=== PATIENT | male | born 1950 | race Caucasian/White ===

== ENCOUNTER 2016-12-29 09:15 | Inpatient (IN) | payer OTHER ==
[2016-12-29 09:28] VITALS: BMI 36.3
[2017-01-03] MEDS ORDERED: CEFAZOLIN/Water 2 GM/20 ML SYRINGE ONE (09:03)
[2017-01-03] MEDS ORDERED: Fentanyl 250 MCG/5 ML VIAL ONE (09:29)
[2017-01-03] MEDS ORDERED: Sodium Chloride 0.9% 10 ML ONE (09:34)
[2017-01-03] MEDS ORDERED: Dexamethasone 20 MG/5 ML VIAL ONE (10:02)
[2017-01-03] MEDS ORDERED: Propofol 200 MG/20 ML VIAL ONE (10:02)
[2017-01-03] MEDS ORDERED: Ondansetron HCl/PF 4 MG/2 ML Vial ONE (10:02)
[2017-01-03] MEDS ORDERED: Promethazine HCl 25 MG/ML VIAL SLOW IVP PRN (10:54)
[2017-01-03] MEDS ORDERED: Ondansetron HCl/PF 4 MG/2 ML Vial IVP PRN ×2 (10:54→14:17)
[2017-01-03] MEDS ORDERED: Promethazine HCl 25 MG/ML VIAL IM PRN ×2 (10:54→14:17)
[2017-01-03] MEDS ORDERED: Fentanyl 100 MCG/2 ML VIAL ONE (12:01)
[2017-01-03] MEDS ORDERED: Ketorolac Tromethamine 30 MG/ML VIAL ONE (12:57)
--- NOTE | 2017-01-03 13:39 | OP ---
DATE OF OPERATION: 01/03/2017 SURGEON: Dionte Chan M.D. SAFETY ASSOCIATE: Tish Ojeda PROCEDURE: Removal of hardware C5-C6, interbody arthrodesis C4-C5 and C6-C7, exploration of spinal fusion C5-C6, placed in intravertebral biomechanical device, local morselized autograft, demineraliz ed bone matrix, anterior titanium instrumentation C5-6. PROCEDURE IN DETAIL: The patient was brought into the operating room and intubated. He was positio sharla supine with the head in modest extension on a gel-filled donut. The previous incision was reope sharla and the C4 through C7 levels were identified. The previous plate was very incorporated by bone and overgrown by bone. We used the drill and Leksell rongeur to remove this bone. We were able to remove the screws in C5, but the screws in C6 were completely invested by bone into the screw head a nd it was impossible to get adequate screw purchase. Ultimately, we tried to drill out and curet ou t the bone in the screw head has been unsuccessfully. I elected therefore not to take any further e fforts to remove the plate as it seemed that it would require significant destruction of the C6 vert ebral body to do so. I therefore replaced the C5 screws. Next, we placed distraction between C4 an d C7 and a completely debrided the intravertebral disks at C4-5 and C6-7. The bony endplates were d ecorticated for the purpose of arthrodesis and appropriately sized intravertebral biomechanical. PE EK devices were brought into the field, filled with demineralized bone matrix and local morselized a utograft, and tapped into place securely at C4-5 and at C6-7. The wound was then extensively irriga clare, immaculate hemostasis was secured, and the wound was closed in anatomic layers over a drain.
[2017-01-03] MEDS ORDERED: HYDROcodone/Acetaminophen 5/325 mg Tablet PO PRN (14:14)
[2017-01-03] MEDS ORDERED: PROVENTIL INHALER 6.7 G (200 INHALATIONS) INH PRN (14:15)
[2017-01-03] MEDS ORDERED: Promethazine HCl 12.5 MG SUPP PR PRN (14:17)
[2017-01-03] MEDS ORDERED: tiZANidine HCl 4 MG TAB PO PRN (14:17)
[2017-01-03] MEDS ORDERED: diphenhydrAMINE 25 MG CAP PO PRN (14:17)
[2017-01-03] MEDS ORDERED: HYDROcodone/Acetaminophen 10/325 mg Tablet PO PRN ×2 (14:17)
[2017-01-03] MEDS ORDERED: Milk Of Magnesia 30 ML UDCUP PO PRN (14:17)
[2017-01-03] MEDS ORDERED: diphenhydrAMINE 50 MG/ML VIAL IVP PRN (14:17)
[2017-01-03] MEDS ORDERED: Promethazine 25 MG TAB PO PRN (14:17)
[2017-01-03] MEDS ORDERED: Morphine 4 MG/ML VIAL SLOW IVP PRN ×2 (14:24→14:25)
[2017-01-03] MEDS: Sodium Chloride 0.9% 1,000 ML IV SCH (14:30)
[2017-01-03] MEDS: Cyclobenzaprine 10 MG TAB PO SCH ×2 (15:54→21:51)
[2017-01-03] MEDS: Gabapentin 300 MG CAP PO SCH ×2 (17:56→21:51)
[2017-01-03] MEDS: Ketorolac Tromethamine 30 MG/ML VIAL IVP SCH (18:16)
[2017-01-03] MEDS: CEFAZOLIN/Water 2 GM/20 ML SYRINGE SLOW IVP SCH (18:17)
[2017-01-03] MEDS: Atorvastatin Calcium 20 MG TAB PO SCH (21:45)
[2017-01-03] MEDS: Finasteride 5 MG TAB PO SCH (21:45)
[2017-01-03] MEDS: Tamsulosin HCl 0.4 MG CAP PO SCH (21:45)
[2017-01-04] MEDS: Ketorolac Tromethamine 30 MG/ML VIAL IVP SCH ×4 (02:04→18:03)
[2017-01-04] MEDS: CEFAZOLIN/Water 2 GM/20 ML SYRINGE SLOW IVP SCH ×3 (02:06→17:53)
[2017-01-04] MEDS: Sodium Chloride 0.9% 1,000 ML IV SCH ×2 (05:19→15:57)
[2017-01-04] MEDS: Cyclobenzaprine 10 MG TAB PO SCH ×3 (08:46→21:26)
[2017-01-04] MEDS: Gabapentin 300 MG CAP PO SCH ×3 (08:48→21:26)
[2017-01-04] MEDS: Loratadine 10 MG TAB PO SCH (08:49)
[2017-01-04] MEDS: Finasteride 5 MG TAB PO SCH (21:26)
[2017-01-04] MEDS: Atorvastatin Calcium 20 MG TAB PO SCH (21:26)
[2017-01-04] MEDS: Tamsulosin HCl 0.4 MG CAP PO SCH (21:26)
[2017-01-05] MEDS: Ketorolac Tromethamine 30 MG/ML VIAL IVP SCH ×2 (01:40→06:23)
[2017-01-05] MEDS: CEFAZOLIN/Water 2 GM/20 ML SYRINGE SLOW IVP SCH ×2 (01:41→09:02)
[2017-01-05] MEDS: Sodium Chloride 0.9% 1,000 ML IV SCH (05:20)
[2017-01-05 08:05] VITALS: TEMP 97.9
[2017-01-05 08:54] VITALS: BP 165/97
[2017-01-05] MEDS: Cyclobenzaprine 10 MG TAB PO SCH (09:02)
[2017-01-05] MEDS: Gabapentin 300 MG CAP PO SCH (09:03)
[2017-01-05] MEDS: Loratadine 10 MG TAB PO SCH (09:03)
== END 2017-01-05 11:40 | disposition home or self-care (01) | DRG 473 ==
LOC: SURG A 01-03 07:26 → SURG B 01-03 12:40
PROVIDERS: ADMIT Neurological Surgery; ATTEND Neurological Surgery
PROC: 0RG20AJ Fusion of 2 or more Cervical Vertebral Joints with Interbody Fusion Device, Posterior Approach, Anterior Column, Open Approach (ICD-10-PCS; principal; 2017-01-03)
PROC: 0PP304Z Removal of Internal Fixation Device from Cervical Vertebra, Open Approach (ICD-10-PCS; 2017-01-03)
DX: M47.22 Other spondylosis with radiculopathy, cervical region (principal); J44.9 Chronic obstructive pulmonary disease, unspecified; I10 Essential (primary) hypertension; J43.9 Emphysema, unspecified; M48.02 Spinal stenosis, cervical region; Z98.1 Arthrodesis status; E78.5 Hyperlipidemia, unspecified; G47.33 Obstructive sleep apnea (adult) (pediatric); H26.9 Unspecified cataract; M19.90 Unspecified osteoarthritis, unspecified site; F17.210 Nicotine dependence, cigarettes, uncomplicated; N40.0 Benign prostatic hyperplasia without lower urinary tract symptoms
CPT/HCPCS: 76001; A4216; G8978-GP-CI; G8979-GP-CI; G8980-GP-CI; J1100; J1885; J2405; J2704; J3010; J3490; J7620

== ENCOUNTER 2017-01-19 15:13 | Outpatient (CLI) | payer OTHER ==
--- NOTE | 2017-01-19 16:02 | RAD ---
CERVICAL SPINE: 01/19/17 Four views. HISTORY: Neck pain. Followup surgery. COMPARISON: 02/04/05. Prior exam revealed anterior plate and screws at C5-6. The anterior plate and screws at C5-6 are agai n noted with fusion at this level. There is now an interbody implant at C4-5 which has been placed si nce the prior exam. Vertebral bodies maintain height and alignment. Mild degenerative changes. IMPRESSION: Postop and degenerative changes of the cervical spine noted. POS: [facility]
== END 2017-01-19 15:14 | disposition home or self-care (01) ==
LOC: TBSIIMAG 15:13
PROVIDERS: ATTEND Physician Assistant
DX: M54.2 Cervicalgia (principal); Z98.890 Other specified postprocedural states
CPT/HCPCS: 72040

== ENCOUNTER 2017-03-03 12:39 | Outpatient (CLI) | payer OTHER ==
--- NOTE | 2017-03-03 14:05 | RAD ---
FIVE VIEWS CERVICAL SPINE: History: Neck pain. M54.2 Technique: AP, lateral, swimmer's and open mouth odontoid views of the cervical spine is obtained. Comparison: 01-19-17 FINDINGS: Four views of the cervical spine demonstrates ACDF with anterior plates and screws fusing the C5-6 le fernando. Anterior fusion hardware is also seen at the C4-5 and C6-7 levels. Findings are unchanged since the previous comparison radiograph from December 2016. IMPRESSION: Anterior fusion with fusion of the C4, C5, C5 and C6 vertebra. POS: [facility]
== END 2017-03-03 12:40 | disposition home or self-care (01) ==
LOC: TBSIIMAG 12:39
PROVIDERS: ATTEND Neurological Surgery
DX: M54.2 Cervicalgia (principal); Z98.1 Arthrodesis status
CPT/HCPCS: 72040

== ENCOUNTER → 2017-04-22 | Day surgery (SDC) | payer OTHER ==
[2017-04-21 10:19] VITALS: BMI 38.0
[~2017-04-22] MED LIST: Iopamidol-M 300 61% 15 ML VIAL ONE
[2017-04-22 07:41] VITALS: TEMP 97.9
--- NOTE | 2017-04-22 10:21 | RAD ---
CERVICAL AND LUMBAR SPINE MYELOGRAM: INDICATION: Low back pain and lumbar radiculopathy. PROCEDURE: Informed consent was obtained, and the patient was transferred to the interventional suite. Bonding Equipment Operator im aging was performed prior to the procedure. The patient was then placed into a prone position, and the low back was prepped and draped in the sta ndard sterile fashion. Topical anesthesia was achieved with 1% lidocaine buffered with sodium bicarb eleazar. Using a 22 gauge needle, uneventful access was obtained into the thecal sac from a left inter laminar approach at the L2-3 level. Clear color CSF was noted at the needle hub. Subsequently, 10 m L of Isovue M 300 was instilled into the thecal sac. This was performed under real-time fluoroscopy with appropriate contrast opacification of the thecal sac demonstrated during the exam with adequate contrast opacification achieved. The needle was removed. The patient tolerated the procedure well w ithout evidence of complication. The patient was then transferred to CT Department [facility]. Please reference separate CT myelogram for additional details. RADIATION EXPOSURE DATA: 0.2 minutes intermittent fluoroscopy. 397 mGy*cm^2. IMPRESSION: Technically successful cervical and lumbar spine myelogram. POS: [facility]
--- NOTE | 2017-04-22 10:45 | CT ---
CT LUMBAR SPINE WITH CONTRAST CT LUMBAR SPINE MYELOGRAM: Date: 04/22/17 INDICATION: Low back pain, lumbar radiculopathy. Reference made to 06/20/13. FINDINGS: There is redemonstration of posterior metallic fusion at L5-S1 levels with associated sclerosis of th e L5 and S1 vertebral segment. There is a mild degree of spondylolisthesis (Grade I), stable at the L 5-S1 level. The conus medullaris terminates at the L1 level, normal in morphology. Incidental note of ectasia and calcification of the abdominal aorta. There are numerous cysts of each kidney, incompletely assessed. Moderate distention of the partially visualized bladder is noted. Bilateral sclerosis is seen about the sacroiliac joints, more notable on the left. No obvious perihar dware lucency is seen. There is multilevel bilateral degenerative facet hypertrophy, more pronounced at the sites of operative fusion. There is osseous irregularity with heterotopic density about the ri ght ilium, laterally. L5-S1: Trace spondylolisthesis is demonstrated as discussed above. No significant mass effect upon the theca l sac. There is moderate biforaminal stenosis, stable. L4-5: There is mild narrowing of the central canal as a result of bilateral facet hypertrophy and disc oste ophyte formation. There is left neural foraminal narrowing. No high grade right foraminal stenosis. L3-4: There is moderate central canal stenosis as a result of broad based disc osteophyte complex. There is mild bilateral neural foraminal narrowing. L2-3: Trace retrolisthesis. Mild narrowing of the central canal. There is mild bilateral neural foraminal n arrowing. L1-2: No high grade mass effect upon the central canal or neural foramina. IMPRESSION: Multilevel degenerative changes of the postoperative lumbar spine as outlined above. No significant i nterval detrimental change from prior lumbar myelogram of 06/20/13. POS: [facility]
--- NOTE | 2017-04-22 11:06 | CT ---
CERVICAL SPINE CT WITH CONTRAST CT CERVICAL MYELOGRAM: Date: 04/22/17 COMPARISON: 06/20/13. CLINICAL HISTORY: Cervical radiculopathy, pain. FINDINGS: Redemonstration of anterior metallic fusion of C5-6. Intradiscal space devices are present at C4-5 an d C6-7. There is straightening of the normal cervical curvature. Degenerative hypertrophy is seen at the atlantodental articulation. No obvious perihardware lucency is seen. There is superior end plate irregularity with associated mild height loss, greatest anteriorly involving the C7 segment, progress mikhail from prior exam, indicating degenerative end plate irregularity adjacent to the intradiscal space device. The above described spacing devices at C4-5 and C6-7 have been placed since the prior exam. No high grade central canal at C1-2. C2-3: Trace spondylolisthesis is present, stable. There is minimal effacement of ventral thecal sac by oste ophyte formation. No high grade foraminal stenosis. C3-4: Bilateral uncinate process hypertrophy is present. There is mild osseous narrowing of each neural for amen, more notable on the right. No high grade central canal stenosis. C4-5: Broad based osteophyte ridge, greatest centrally, does result in mild central canal stenosis with ju tral cord effacement. There is bilateral uncinate process hypertrophy, more notable on the left, with moderate left and mild right neural foraminal stenosis. C5-6: There is a prominent left paracentral osteophyte with focal moderate central canal stenosis and abutm ent of the ventral aspect of the cervical spinal cord. There is moderate to severe right and moderate left neural foraminal stenosis. C6-7: Moderate central canal stenosis with associated cord compression due to prominent central/left parace ntral osteophyte ridge. There is mild to moderate left and minimal right neural foraminal narrowing. C7-T1: Disc osteophyte results in mild effacement of the ventral thecal sac contents. Minimal right neural f oraminal narrowing. No high grade left foraminal stenosis. Incidental note of granulomatous calcification. There is mild heterogeneity of the thyroid gland, incompletely assessed. This may be further assessed with dedicated thyroid ultrasound. IMPRESSION: Multilevel degenerative change throughout the postoperative cervical spine as outlined above. POS: [facility]
== END ==
LOC: RAD 06:59
PROVIDERS: ATTEND Neurological Surgery
PROC: B02B1ZZ Computerized Tomography (CT Scan) of Spinal Cord using Low Osmolar Contrast (ICD-10-PCS; principal; 2017-04-22)
DX: M54.16 Radiculopathy, lumbar region (principal); M54.12 Radiculopathy, cervical region; M48.02 Spinal stenosis, cervical region; M48.061 Spinal stenosis, lumbar region without neurogenic claudication; M43.17 Spondylolisthesis, lumbosacral region; Z98.1 Arthrodesis status
CPT/HCPCS: 62305; 72126; 72132

== ENCOUNTER 2018-08-08 22:28 | Observation (INO) | payer OTHER ==
[2018-08-08 23:07] LABS: #Eosinphils 0.4 thou/uL (0.0-0.7); #Lymphocytes 2.2 thou/uL (1.20-3.40); #Monocytes 0.5 thou/uL (0.11-0.59); #Neutrophils 6.5 thou/uL (1.40-6.50); %Basophils 0.4 % (0.0-1.0); %Eosinophils 4.6 % (0.0-10.0); %Monocytes 4.9 % (0.0-10.0); %Neutrophils 67.2 % (42.0-75.0); Hemoglobin 14.5 g/dL (14.0-18.0); Mean Corpuscular HGB CONC 34.1 g/dL (32.0-36.0); Mean Corpuscular Hemoglobin 31.6 pg (27.0-31.0); Mean Corpuscular Volume 92.7 fL (78.0-98.0); Mean Platelet Volume 8.8 fL (7.4-10.4); Platelet Count 135 thou/uL (130-400); RBC Distribution Width 13.2 % (11.5-14.5); Red Blood Cell (RBC) Count 4.58 mill/uL (4.70-6.10); White Blood Cell (WBC) Count 9.7 thou/uL (4.8-10.8)
--- NOTE | 2018-08-08 23:22 | RAD ---
XR Chest 1 View Portable HISTORY: Chest pain COMPARISON: None. FINDINGS: Heart size is within normal limits. Mediastinal structures appear unremarkable. The lungs a re clear of infiltrates. No significant bony findings. IMPRESSION: No active intrathoracic disease.
[2018-08-08 23:27] LABS: ALT (SGPT) 14 U/L (8-55); AST (SGOT) 13 U/L (5-34); Alkaline Phosphatase 70 U/L (40-150); Anion Gap 12 mmol/L (10-20); BUN (Urea Nitrogen) 13 mg/dL (8.4-25.7); Bilirubin, Total 0.5 mg/dL (0.2-1.2); Calc. Creatinine Clearance 0 mL/min (70-130); Calcium 9.4 mg/dL (7.8-10.44); Carbon Dioxide 25 mmol/L (23-31); Chloride 106 mmol/L (98-107); Estimated GFR-MDRD 78; Globulin 2.9 g/dL (2.4-3.5); Glucose 117 mg/dL (80-115); Potassium 3.8 mmol/L (3.5-5.1); Protein, Total 6.9 g/dL (5.8-8.1); Sodium 139 mmol/L (136-145)
--- NOTE | 2018-08-08 23:42 | CT ---
CT Brain WO Con HISTORY: Fall with head injury. COMPARISON: None. FINDINGS: The ventricular and cisternal system shows fairly age-appropriate change. There are no sign s of intracerebral hemorrhage or extra-axial fluid collections. The mastoid air cells are clear. There is mild ethmoid air cell mucosal change. IMPRESSION: No acute intracranial abnormalities.
--- NOTE | 2018-08-08 23:46 | CT ---
CT Cervical Spine WO Con HISTORY: Fall with neck pain. History of previous surgery. COMPARISON: 05/12/2017 study. FINDINGS: The vertebral bodies maintain normal height. Anterior cervical fusion is seen at the C5-6 l evel. Disc implants are seen at C4-5, C5-6 and C6-7, bony changes associated with these findings appear stable with some sclerotic bony change. Endplate irregularities are unchanged. The facets are in normal alignment. There is left-sided foraminal narrowing at C4-5 related to uncovertebral hypertrophic change this is moderate. Mild right-sided foraminal narrowing is seen at C5-6 with mild to moderate canal narrowing. Left-sided foraminal narrowing which is moderate is seen at C3 C6-7. There is no CT eviden ce for fracture. IMPRESSION: No CT evidence of fracture.
[2018-08-09] MEDS ORDERED: diphenhydrAMINE 50 MG/ML VIAL ONE (00:26)
[2018-08-09] MEDS ORDERED: Metoclopramide HCl 10 MG/2 ML VIAL ONE (00:26)
[2018-08-09] MEDS ORDERED: Ondansetron ODT 4 MG TAB SL PRN (02:35)
[2018-08-09] MEDS ORDERED: Acetaminophen 325 MG TAB PO PRN ×2 (02:35→09:00)
[2018-08-09] MEDS ORDERED: Ondansetron PF 4 MG/2 ML Vial IVP PRN ×2 (02:35→09:00)
[2018-08-09] MEDS ORDERED: HYDROcodone/Acetaminophen 5/325 mg Tablet PO PRN ×3 (02:35→09:00)
[2018-08-09 02:40] LABS: Troponin I Less than 0.010 ng/mL (< 0.028)
[2018-08-09 03:36] VITALS: BMI 36.9
[2018-08-09 06:17] LABS: Troponin I Less than 0.010 ng/mL (< 0.028)
[2018-08-09] MEDS ORDERED: Ondansetron ODT 4 MG TAB PO PRN (09:00)
[2018-08-09] MEDS ORDERED: Enoxaparin Sodium 40 MG/0.4 ML SYRINGE SC SCH (09:00)
[2018-08-09] MEDS ORDERED: hydrALAZINE 20 MG/ML VIAL SLOW IVP PRN (09:00)
[2018-08-09] MEDS ORDERED: Aspirin 325 MG TAB PO SCH (09:00)
[2018-08-09] MEDS ORDERED: Nitroglycerin 0.4 MG TAB (25 Tab Bottle) PO PRN (09:00)
[2018-08-09] MEDS ORDERED: Aspirin 325 mg Enteric Coated Tablet PO SCH (09:00)
[2018-08-09] MEDS ORDERED: HYDROcodone/Acetaminophen 10/325 mg Tablet PO PRN (09:10)
--- NOTE | 2018-08-09 10:50 | ULT ---
ULTRASOUND WITH DOPPLER DUPLEX VENOUS LOWER EXTREMITY RIGHT: HISTORY: A 67-year-old male with right lower extremity pain and edema. TECHNIQUE: Color flow Doppler, spectral waveform analysis of pulsed Doppler, and jordan-scale imaging with bakari tamy and augmentation, were used to evaluate the right common femoral, femoral, popliteal, posterior tibial, and superficial femoral, veins; and the proximal portions of the profunda femoral and greater saphenous, veins. FINDINGS: There is normal compressibility, demonstration of blood flow by color Doppler and pulsed Doppler, and response to augmentation, in all interrogated veins. IMPRESSION: Negative. No deep vein thrombosis in the right lower extremity. jn [] POS: [facility]
--- NOTE | 2018-08-09 12:14 | NM ---
EXAM: CARDIAC SPECT HISTORY: Chest pain TECHNIQUE: A myocardial perfusion scan was performed using the single isotope 1 day protocol with qian hnetium 99m sestamibi. [10 mCi] was injected intravenously for the rest exam followed by 30 mCifor the stress study. Pharmacologic stress with Lexiscan was monitored and interpreted by Ellen Hernandez, nurse practitioner FINDINGS: Homogeneous tracer distribution is seen in the myocardial segments on stress and rest image s without fixed or reversible defects. Gated SPECT LVEF: 60% Wall motion exam: Normal IMPRESSION: Normal myocardial perfusion scan
[2018-08-09 13:58] VITALS: BP 157/86; TEMP 97.6
[2018-08-09] MEDS ORDERED: Nitroglycerin 2% Ointment 1 INCH/1 GM Packet TOP SCH (14:00)
[2018-08-09] MEDS ORDERED: Cyclobenzaprine 10 MG TAB PO SCH (15:00)
[2018-08-09] MEDS ORDERED: Gabapentin 300 MG CAP PO SCH (15:00)
--- NOTE | 2018-08-09 15:23 | HP ---
PRIMARY CARE PHYSICIAN: Dr. Cano at the [facility] in [place]. CHIEF COMPLAINT: Chest pain and headache. HISTORY OF PRESENT ILLNESS: Mr. Messina is a pleasant 67-year-old gentleman, who has a history of hypertension and hypercholesterolemia. He was in his usual state of health until about 4 days ago. He says he was mowing the lawn. He stepped in a hole and then twisted his knee and then fell and hit the right side of his head. Since then, he has developed a pain in the right side of his neck that goes into the right side of his head. He says that the headache has been off and on and he feels like there is a knot in his neck on the right side. Also, around the same time, he started having chest pain off and on. It is primarily on the left side of his chest. It what happened he was up, moving around and he says that it was "very bad." It would radiate into his shoulder and then go into his back. During the time, he would have the chest pain, he would feel quite ill and sick. He would also get short of breath and nauseated. As a result of these symptoms, he came to the ER for evaluation. The patient also says that he noticed around this time, he started having some pain in his right leg off and on. It appeared to be swollen, but he says the swelling has actually gone down some, but he also noted some swelling and numbness in his right hand as well. REVIEW OF SYSTEMS: CONSTITUTIONAL: There has been no fevers or chills. No night sweats. No weight loss. HEENT: No headaches. No dizziness. No visual changes. No sore throat, rhinorrhea, neck pain. No adenopathy. PULMONARY: No hemoptysis. No cough. No wheezing. CARDIOVASCULAR: As per the history of present illness. GASTROINTESTINAL: He has had some nausea, but no vomiting. No change in bowels. No hematemesis. No melena. GENITOURINARY: No urinary frequency or hematuria. No hesitancy. MUSCULOSKELETAL: He complains of some pains in his right leg as well as some swelling off and on as he also says that he torn his meniscus in that right knee as well. SKIN AND INTEGUMENT: No skin changes. No rash. ENDOCRINE: No heat or cold intolerance. No polyuria. No polydipsia. PSYCHIATRIC: No symptoms of anxiety or depression. NEUROLOGIC: No focal weakness or seizures. PAST MEDICAL HISTORY: Significant for hypertension, hypercholesterolemia, BPH. He says he has had a kidney cyst on the right side, which has required draining in the past as well as COPD. PAST SURGICAL HISTORY: He has had 2 spinal surgeries, 2 neck surgeries, and cataract surgery. ALLERGIES: NO KNOWN DRUG ALLERGIES. SOCIAL HISTORY: He is . He has 4 children. He smokes about half a pack a day since 1975, so at least 40 years. Denies any alcohol use. FAMILY HISTORY: Significant for heart disease and he says in both his mother and father sides of the family. MEDICATIONS: Include, 1. Flomax 0.4 mg daily. 2. Sulindac 200 mg twice a day. 3. Protonix 40 mg p.o. daily. 4. Striverdi Respimat. 5. Claritin 10 mg daily. 6. [place] 10/325 q.4 as needed. 7. Hydrochlorothiazide 12.5 mg p.o. daily. 8. Gabapentin 600 mg three times a day. 9. Finasteride 5 mg p.o. daily. 10. Cyclobenzaprine 10 mg t.i.d. 11. Lipitor 40 mg at bedtime. 12. Albuterol sulfate one puff q.i.d. PHYSICAL EXAMINATION: GENERAL: He is alert and oriented. He appears to be in no acute distress. He is well developed and well nourished. VITAL SIGNS: His blood pressure is 157/79, heart rate is 74, respiratory rate of 18, temperature is 98.4. HEENT: His pupils are equal, round, and reactive to light and accommodation. Extraocular muscles are intact. His sclerae are anicteric. Throat, there is no erythema, no exudates. NECK: No adenopathy. No bruits. LUNGS: Clear to auscultation. There is no wheezing, no rales, no rhonchi. CARDIOVASCULAR: He has a normal S1 and S2. I do not appreciate an S3 or S4. No murmurs, clicks or rubs. ABDOMEN: Obese. It is soft. He did have some mild right upper quadrant tenderness. There is no rebound, no guarding, no organomegaly. EXTREMITIES: He has trace lower extremity edema primarily around the ankles on the right lower extremity, but there is no erythema, no warmth. No joint effusion. SKIN AND INTEGUMENT: There are no significant skin changes. No rash. NEUROLOGIC: Te exam is grossly nonfocal. IMAGING STUDIES: He had a CT scan of the brain, which was negative. Also, CT scan of the cervical spine in which there were no significant findings, although some age-appropriate degenerative changes, no fractures. His EKG was a sinus rhythm. There were no ST wave changes. Essentially normal. LABORATORY DATA: White blood cell count is 9.7, hemoglobin is 14.5, hematocrit is 42.4, and platelet count is 135. Sodium is 139, potassium is 3.8, chloride is 106, CO2 is 25, BUN of 13, creatinine is 0.96, glucose is 117. Troponin is less than 0.010. ASSESSMENT: This is a pleasant 67-year-old gentleman, who presents with 2 major complaints. 1. Chest pain. He is at significant risk for coronary artery disease with elevated cholesterol as well as hypertension and he is a long-time smoker. For this reason, he will be placed in observation, and we will get a nuclear stress test to further stratify his risk of coronary artery disease. 2. For the headache, this is likely secondary to a cervical strain from his fall. He complains of some neck pain as well as the pain radiating to the right side of his head. He says it is better now, but he thinks it is going to come back as he still notes this tight painful feeling in the right side of his neck. This was discussed, and I suspect that this will be self-limiting over the course of the next few days. He already has significant medications at home including [place], muscle relaxers and gabapentin, and likely this should help take care of the headache. 3. The right leg pain and swelling. We will get an ultrasound of his right leg to rule out DVT. If the DVT is present, then we may need to get a CT angiogram to rule out PE as well. 4. Chronic obstructive pulmonary disease. Continue his usual medications as well as DuoNeb's p.r.n. 5. Hypertension. Again, continue his usual home medications as well as p.r.n. medications for blood pressure. Job ID: [id number]
[2018-08-09] MEDS ORDERED: Regadenoson 0.4 MG/5 ML SYRINGE ONE (16:35)
[2018-08-09] MEDS ORDERED: Tamsulosin HCl 0.4 MG CAP PO SCH (21:00)
[2018-08-09] MEDS ORDERED: Finasteride 5 MG TAB PO SCH (21:00)
[2018-08-09] MEDS ORDERED: Atorvastatin Calcium 20 MG TAB PO SCH (21:00)
--- NOTE | 2018-08-10 08:27 | DIS ---
DATE OF ADMISSION: 08/09/2018 DATE OF DISCHARGE: 08/09/2018 PRIMARY CARE PHYSICIAN: Dr. Aguilar at the [facility]. DISCHARGE DISPOSITION: Home. PRIMARY DISCHARGE DIAGNOSES: 1. Chest pain, probable noncardiac. 2. Headache, likely due to posttraumatic cervical strain. 3. Hypertension. 4. Hypercholesterolemia. 5. BPH. 6. Chronic obstructive pulmonary disease. DISCHARGE MEDICATIONS: Include; 1. Flomax 0.4 mg daily. 2. Clinoril 200 mg twice a day. 3. Protonix 40 mg daily. 4. Striverdi Respimat 2 puffs twice daily. 5. Loratadine 10 mg daily. 6. [place] 10/325 q.6 as needed. 7. Hydrochlorothiazide 12.5 mg p.o. daily. 8. Gabapentin 600 mg t.i.d. 9. Finasteride 5 mg q.p.m. 10. Flexeril 10 mg t.i.d. 11. Lipitor 40 mg at bedtime. 12. Albuterol inhaler one puff q.i.d. as needed. PROCEDURES DONE DURING THE ADMISSION: The patient had a nuclear stress test which was negative. A lower extremity venous Doppler of the right leg, which was negative for DVT. He had a CT of his cervical spine showing no evidence of fracture. There was some disk implant seen at the C4-C5, C5-C6, and C6-C7. There was some narrowing at C4 and C5. The patient also had an MRI of the brain showing no acute intracranial abnormalities. CODE STATUS: Full code. ALLERGIES: NO KNOWN DRUG ALLERGIES. HOSPITAL COURSE: Mr. Messina is a pleasant 67-year-old gentleman, who presented to the emergency room after he started having pain in his chest. This happened a couple of days after he suffered a fall. He says he had stepped in a hole while he was mowing his lawn, twisted his knee, and fell on his right side and after that, he started having pain in his neck as well as in the right side of his head and then began having pain in his chest. This got progressively worse with time. He was concerned, came to the ER, and was placed in observation. CT scan of the brain and cervical spine did not show any significant abnormalities. However, for the chest pain, he was placed in observation and had a nuclear stress test which was negative. Also after the incident, he noticed some swelling in his leg and for this reason, a venous Doppler was done. This was negative for DVT. I suspect that his symptoms are likely related to the injury, possibly a muscle strain. He says that he does not need any new medications such as a muscle relaxer, pain medicine as he "has these all at home already." Therefore, there were no changes made in his medications and he is to follow up at the [facility] in 1 to 2 weeks. Job ID: [id number]
[2018-08-10] MEDS ORDERED: Loratadine 10 MG TAB PO SCH (09:00)
--- NOTE | 2018-08-12 16:52 | EKG ---
Test Reason : Blood Pressure : / mmHG Vent. Rate : 082 BPM Atrial Rate : 082 BPM P-R Int : 178 ms QRS Dur : 092 ms QT Int : 358 ms P-R-T Axes : 061 -13 014 degrees QTc Int : 418 ms Normal sinus rhythm Normal ECG Confirmed by AARSH Real, NIKKI ([id number]), index editor SYMONE LOUISE ([id number]) on 08/12/2018 4:52:07 PM Referred By: Confirmed By:NIKKI ANTOINE M.D.
== END 2018-08-09 15:45 | disposition home or self-care (01) ==
LOC: ERS 22:28 → 2SW 08-09 02:16
PROVIDERS: ADMIT Hospitalist; ATTEND Hospitalist
DX: R07.9 Chest pain, unspecified (principal); R51 Headache; M54.2 Cervicalgia; M79.661 Pain in right lower leg; I10 Essential (primary) hypertension; E78.00 Pure hypercholesterolemia, unspecified; J44.9 Chronic obstructive pulmonary disease, unspecified; N40.0 Benign prostatic hyperplasia without lower urinary tract symptoms; F17.210 Nicotine dependence, cigarettes, uncomplicated; Z79.899 Other long term (current) drug therapy
CPT/HCPCS: 36415; 70450; 71045; 72125; 78452; 80053; 83880; 84484; 85025; 93005; 93017; 94760; 96365; 96372; 96375; A9500; G0378; J1200; J1650; J2765; J2785

== ENCOUNTER 2018-10-03 11:46 | Outpatient (CLI) | payer OTHER ==
--- NOTE | 2018-10-03 13:18 | MRI ---
EXAM: MRI Lumbar Spine WO Con PROVIDED CLINICAL HISTORY: Lumbar radiculopathy COMPARISON: CT 04/22/2017 FINDINGS: 5 lumbar vertebral bodies are assumed. Grade 1 anterolisthesis L5 on S1 redemonstrated. Lumbar alignm ent appears otherwise normal. Bilateral pedicle screws and vertical interconnecting rods are again noted spanning L5-S1. Regional marrow signal unaffected by metallic susceptibility artifact appears n ormal. Vertebral body heights appear preserved. The conus medullaris is normal in signal and terminates at an appropriate level. Bilateral renal cystic structures are incompletely visualized and incompletely characterized on the basis of this study. At L1-2, there is no significant central canal or foraminal narrowing apparent. At L2-3, there is no significant central canal or foraminal narrowing apparent. At L3-4, there is bilateral facet arthritis with mild bilateral foraminal narrowing. No significant c entral canal stenosis apparent. At L4-5, there is disc space height loss and a broad-based disc bulge with bilateral facet arthritis. There is no significant central canal or foraminal narrowing apparent. The L5-S1 level is suboptimally evaluated due to magnetic susceptibility artifact. There is no signif icant canal stenosis apparent. Bilateral foraminal narrowing is suspected, greater right of midline, with potential for impingement on the exiting right L5 nerve root. IMPRESSION: 1. Postoperative and degenerative changes involving the lumbar spine, with potential for right-sided L5 nerve root impingement at L5-S1. 2. Bilateral renal T2 hyperintensities, incompletely characterized on the basis of this study. Correl ation with renal ultrasound recommended. Code T
--- NOTE | 2018-10-03 14:14 | CT ---
EXAM: CT Pelvis WO Con PROVIDED CLINICAL HISTORY: Left-sided radiculopathy COMPARISON: None FINDINGS: There is a corticated ossific density adjacent to the lateral aspect of the superior right acetabulum anteriorly, likely reflecting sequela of prior, ununited rectus avulsion. There is no evidence for an acute fracture or other acute osseous abnormality. Hip joint spaces appear maintained. No regional joint effusion is evident. Mild sacroiliac joint degenerative changes are seen. The visualized intrapelvic contents appear unremarkable with the exception of vascular calcification. No lytic or bl astic bony lesions are seen. IMPRESSION: 1. No evidence for an acute osseous abnormality or significant arthropathy. 2. Remote, ununited right rectus femoris origin avulsion fracture.
--- NOTE | 2018-10-03 14:19 | MRI ---
EXAM: MRI Pelvis WO Con PROVIDED CLINICAL HISTORY: Bilateral hip pain COMPARISON: None FINDINGS: Regional marrow signal appears normal. Alignment appears anatomic. No regional joint effusion is evident. The courses of the regional major neurovascular structures appear unremarkable. 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 The hip flexor, abductor, adductor and hamstring tendons demonstrate an otherwise normal MR appearance. The acetabular suzanne and femoral-acetabular articular cartilage are suboptimally evaluated in the abs ence of joint distention but appear grossly normal. IMPRESSION: Remote ununited indirect head right rectus femoris origin avulsion fracture. Otherwise unremarkable e xam.
== END 2018-10-03 11:47 | disposition home or self-care (01) ==
LOC: SCSMRI 11:46
PROVIDERS: ATTEND Neurological Surgery
DX: M47.26 Other spondylosis with radiculopathy, lumbar region (principal); M54.12 Radiculopathy, cervical region; M25.80 Other specified joint disorders, unspecified joint; Z87.81 Personal history of (healed) traumatic fracture
CPT/HCPCS: 72148; 72192; 72195